=== PATIENT | male | born 1975 ===

== ENCOUNTER 2024-04-04 07:55 | Day surgery (SDC) | payer BC ==
[~2024-04-04] VITALS: Ht 175.3 cm; Wt 105.7 kg
--- NOTE | 2024-04-04 09:45 | NUR ---
04/04/24 0945 Sara Edward PT. DENIES ANY PAIN.
[2024-04-04] MEDS ORDERED: Lactated Ringer's 1,000 ML IV ONE ×2 (09:46→09:50)
[2024-04-04] MEDS ORDERED: propofoL 50 ML IV ONE (09:49)
[2024-04-04 16:11] VITALS: BP 130/83
== END 2024-04-04 11:06 | disposition home or self-care (01) ==
LOC: ORSCSDS 07:55
DX: Z12.11 Encounter for screening for malignant neoplasm of colon (principal); Z83.719 Family history of colon polyps, unspecified; D12.0 Benign neoplasm of cecum; D12.3 Benign neoplasm of transverse colon; D12.4 Benign neoplasm of descending colon; D12.5 Benign neoplasm of sigmoid colon; K57.30 Diverticulosis of large intestine without perforation or abscess without bleeding; K64.8 Other hemorrhoids; E78.5 Hyperlipidemia, unspecified; Z72.0 Tobacco use; I10 Essential (primary) hypertension; E66.9 Obesity, unspecified; Z68.36 Body mass index [BMI] 36.0-36.9, adult
CPT/HCPCS: 88305; J2704; J7120